=== PATIENT | male | born 1935 | race Caucasian/White ===

== ENCOUNTER → 2016-09-25 | Outpatient (CLI) | payer OTHER, BC ==
[~2016-09-25] MED LIST: ALL100 PO; ALLO100T PO; CALC500C70 PO; IBUP-103 PO; LOSA50TA6 PO; MULT-506 PO; MULT60CA PO; PRLSR20 PO
[2016-09-25 10:54] LABS: BASO % 0.5 %; BASO ABS # 0.02 K/uL (0-0.2); COMPLETE YES; EOS % 5.3 %; HEMATOCRIT 38.8 % (42-52); LYMPH % 41.6 %; LYMPH ABS # 1.79 K/uL (1.2-3.4); MEAN CELL VOLUME 93.3 fL (80-100); MEAN CORPUSCULAR HEMOGLOBIN 32.5 pg (25-34); MEAN CORPUSCULAR HGB CONC 34.8 g/dl (32-36); MEAN PLATELET VOLUME 9.5 fL (7.4-10.4); MONO % 7.7 %; NEUT % 44.9 %; PLATELET COUNT 187 K/uL (130-400); RED BLOOD COUNT 4.16 M/uL (4.7-6.1)
[2016-09-25 11:06] LABS: BLOOD UREA NITROGEN 16 mg/dl (7-18); BUN/CREATININE RATIO 13.1 (10-20); CALCIUM 9.2 mg/dl (8.5-10.1); CARBON DIOXIDE 28 mmol/L (21-32); CHLORIDE 107 mmol/L (98-107); GLUCOSE 105 mg/dl (70-99); POTASSIUM 4.2 mmol/L (3.5-5.1); SODIUM 143 mmol/L (136-145)
[2016-09-25 11:22] LABS: ESTIMATED AVERAGE GLUCOSE 105 mg/dl; HA1C FLAG Normal (Normal)
== END | disposition home or self-care (01) ==
LOC: C.LABBC 08:42
PROVIDERS: ATTEND Internal Medicine Geriatric Medicine
DX: I10 Essential (primary) hypertension (principal); D64.9 Anemia, unspecified; R73.9 Hyperglycemia, unspecified; M25.559 Pain in unspecified hip; M85.80 Other specified disorders of bone density and structure, unspecified site

== ENCOUNTER → 2017-04-06 | Outpatient (CLI) | payer OTHER, BC ==
[2017-04-06 10:55] LABS: BASO % 0.2 %; BASO ABS # 0.01 K/uL (0-0.2); COMPLETE YES; EOS % 5.4 %; HEMATOCRIT 40.3 % (42-52); IG% 0.2 %; LYMPH % 32.3 %; LYMPH ABS # 1.63 K/uL (1.2-3.4); MEAN CELL VOLUME 94.8 fL (80-100); MEAN CORPUSCULAR HEMOGLOBIN 31.8 pg (25-34); MEAN CORPUSCULAR HGB CONC 33.5 g/dl (32-36); MEAN PLATELET VOLUME 9.5 fL (7.4-10.4); MONO % 5.4 %; NEUT % 56.5 %; PLATELET COUNT 223 K/uL (130-400); RED BLOOD COUNT 4.25 M/uL (4.7-6.1); WHITE BLOOD COUNT 5.04 K/uL (4.8-10.8)
[2017-04-06 11:27] LABS: BLOOD UREA NITROGEN 23 mg/dl (7-18); BUN/CREATININE RATIO 20.8 (10-20); CALCIUM 8.8 mg/dl (8.5-10.1); CARBON DIOXIDE 29 mmol/L (21-32); CHLORIDE 107 mmol/L (98-107); GLUCOSE 93 mg/dl (70-99); POTASSIUM 4.5 mmol/L (3.5-5.1); SODIUM 142 mmol/L (136-145); URIC ACID 5.2 mg/dl (2.6-7.2)
== END | disposition home or self-care (01) ==
LOC: C.LABBC 09:11
PROVIDERS: ATTEND Internal Medicine Geriatric Medicine
DX: M10.9 Gout, unspecified (principal); I10 Essential (primary) hypertension; K21.9 Gastro-esophageal reflux disease without esophagitis; M19.90 Unspecified osteoarthritis, unspecified site; K31.84 Gastroparesis; D64.9 Anemia, unspecified

== ENCOUNTER → 2017-05-21 | Day surgery (SDC) | payer OTHER, BC ==
[2017-05-04 14:08] VITALS: Ht 162.6 cm; Wt 77.3 kg
[~2017-05-21] VITALS: Ht 162.6 cm; Wt 77.3 kg
[~2017-05-21] MED LIST changes: -ALL100 PO; +LIDOCAINE HCL 2% 2 ML VIAL (20MG/ML) ONE; +PROPOFOL IV EMULSION 10 MG/ML 20 ML VIAL IV ONE; +SODIUM CHLORIDE 0.9% 500ML 500 ML IV ONE
--- NOTE | 2017-05-21 09:54 | Endo History and Physical ---
History & Physical Date of Service: May 21, 2017. Chief Complaint: Hx of Adenoma Referring Physician: DR Erick Blank History of Present Illness 81 yo CM who presents for colonoscopy secondary to history of colon polyps. Past Medical History Male Genitourinary Prob., Gastrointestinal Disorder, Reflux, Hypertension Past Surgical History Hx Cardiac Surgery: No Hx Internal Defibrillator: No Hx Pacemaker: No Hx Abdominal Surgery: Yes (BRIA, HERNIA REPAIR) Hx of Implantable Prosthesis: No Hx Post-Op Nausea and Vomiting: No Hx Cancer Surgery: No Hx Thoracic Surgery: No Hx Orthopedic: No Hx Urinary Tract Surgery: No Family History None Social History Smoking Status: Former Smoker Hx Substance Use: No Hx Alcohol Use: Yes (A FEW TIMES/WEEK, OCCASIONAL BEER OR MIXED DRINK) Allergies Coded Allergies: No Known Allergies (Verified , 05/21/17) Current Medications Reported Home Medications Medications Dose Route/Sig Max Daily Dose Days Date Category Advil (Ibuprofen) 200 Mg Tab 200 Mg PO PRN 05/04/17 Reported Zyloprim (Allopurinol) 100 Mg Tab 100 Mg PO QAM 05/04/17 Reported Preservision Areds 2 (Multiple Vitamins W/ Minerals) 1 Cap Cap 1 Cap PO BID 05/30/16 Reported Cozaar (Losartan Potassium) 50 Mg Tab 50 Mg PO QAM 05/30/16 Reported Os-Uziel 500 Plus D (Calcium/Vitamin D) Tab 1 Tab PO BID 05/30/16 Reported Prilosec (Omeprazole) 20 Mg Capcr 20 Mg PO BID 05/19/13 Reported Multivitamin (Multivitamins) Tab 1 Tab PO QAM 12/10/07 Reported Vital Signs Weight (Kilograms): 77.27 Height (Feet): 5 Height (Inches): 4 Date Time Temp Pulse Resp B/P (MAP) Pulse Ox O2 Delivery O2 Flow Rate FiO2 05/21/17 09:28 36.5 71 20 124/69 (87) 97 Room Air Physical Exam General Appearance: WD/WN, no apparent distress Respiratory/Chest: Auscultation: breath sounds normal Cardiovascular: Heart Auscultation: RRR Abdomen: Bowel Sounds: normal Inspection & Palpation: soft, non-distended, no tenderness, guarding & rebound Assessment and Plan Assessment: 81 yo CM who presents for colonoscopy secondary to history of colon polyps. Plan: Proceed with colonoscopy.
--- NOTE | 2017-05-21 10:42 | GI REPORT ---
Procedure Date: 05/21/2017 9:47 AM Procedure: Colonoscopy Indications: High risk colon cancer surveillance: Personal history of colonic polyps Medicines: Monitored Anesthesia Care Complications: No immediate complications. Estimated Blood Loss: Estimated blood loss: none. Procedure: Pre-Anesthesia Assessment: - Prior to the procedure, a History and Physical was performed, and patient medications and allergies were reviewed. The patient's tolerance of previous anesthesia was also reviewed. The risks and benefits of the procedure and the sedation options and risks were discussed with the patient. All questions were answered, and informed consent was obtained. Prior Anticoagulants: The patient has taken no previous anticoagulant or antiplatelet agents. ASA Grade Assessment: II - A patient with mild systemic disease. After reviewing the risks and benefits, the patient was deemed in satisfactory condition to undergo the procedure. After I obtained informed consent, the scope was passed under direct vision. Throughout the procedure, the patient's blood pressure, pulse, and oxygen saturations were monitored continuously. The Scope was introduced through the anus and advanced to the cecum, identified by appendiceal orifice and ileocecal valve. The colonoscopy was performed without difficulty. The patient tolerated the procedure well. The quality of the bowel preparation was good. The terminal ileum, the ileocecal valve and the rectum were photographed. Findings: Five sessile polyps were found in the transverse colon. The polyps were 3 to 6 mm in size. These polyps were removed with a cold snare. Resection and retrieval were complete. Multiple small-mouthed diverticula were found in the sigmoid colon. Non-bleeding internal hemorrhoids were found during retroflexion. The hemorrhoids were small. Impression: - Five 3 to 6 mm polyps in the transverse colon, removed with a cold snare. Resected and retrieved. - Diverticulosis in the sigmoid colon. - Non-bleeding internal hemorrhoids. Recommendation: - Resume previous diet. - Continue present medications. - Repeat colonoscopy for surveillance based on pathology results. - Return to primary care physician as previously scheduled. Pilo Rhodes, DO 05/21/2017 10:42:32 AM This report has been signed electronically. Note Initiated On: 05/21/2017 9:47 AM I attest to the content of the Intraoperative Record and orders documented therein, exceptions below
--- NOTE | 2017-05-21 10:48 | Discharge Instructions ---
Endoscopy Patient Instructions Date / Procedure(s) Performed May 21, 2017. Colonoscopy Allergy Information Coded Allergies: No Known Allergies (Verified , 05/21/17) Discharge Date / Findings May 21, 2017. Colon polyps Internal hemorrhoids Medication Instructions OK to resume all medications today as prescribed Reported Home Medications Medications Dose Route/Sig Max Daily Dose Days Date Category Advil (Ibuprofen) 200 Mg Tab 200 Mg PO PRN 05/04/17 Reported Zyloprim (Allopurinol) 100 Mg Tab 100 Mg PO QAM 05/04/17 Reported Preservision Areds 2 (Multiple Vitamins W/ Minerals) 1 Cap Cap 1 Cap PO BID 05/30/16 Reported Cozaar (Losartan Potassium) 50 Mg Tab 50 Mg PO QAM 05/30/16 Reported Os-Uziel 500 Plus D (Calcium/Vitamin D) Tab 1 Tab PO BID 05/30/16 Reported Prilosec (Omeprazole) 20 Mg Capcr 20 Mg PO BID 05/19/13 Reported Multivitamin (Multivitamins) Tab 1 Tab PO QAM 12/10/07 Reported Provider Instructions Activity Restrictions - No exercising or heavy lifting for 24 hours. - Do not drink alcohol the day of the procedure. - Do not drive a car or operate machinery until the day after the procedure. - Do not make any important decisions or sign important papers in 24 hours after the procedure. Following Day: - Return to full activity which may include returning to work/school. Diet Start your diet with liquids and light foods (jello, soup, juice, toast). Then eat your usual diet if not nauseated. Treatment For Common After Affects For mild abdominal pain, bloating, or excessive gas: - Rest - Eat lightly - Lie on right side Follow-Up Information Follow-up with DR Erick Blank as scheduled Anesthesia Information What You Should Know You have had a procedure that required some medicine to reduce anxiety and discomfort. This treatment is called moderate sedation. After receiving the treatment, you may be sleepy, but you will be able to breathe on your own. The effects of the treatment may last for several hours. Follow these instructions along with Activity/Diet recommendations noted above: * Do NOT do anything where dizziness or clumsiness would be dangerous. * Rest quietly at home today, then you can be up and about tomorrow. * Have a responsible person stay with you the rest of today. * You may have had an I.V. today. If so, you may take the dressing off later today. Recommendations Call your doctor if: * Trouble breathing * Continuous vomiting for more than 24 hours * Temperature above 101 degrees * Severe abdominal pain or bloating * Pain not relieved by pain medicine ordered * There is increased drainage or redness from any incision * A large amount of rectal bleeding greater than 2-3 tablespoons. (If you had a polyp/s removed or have hemorrhoids, a small amount of blood - from the rectum is to be expected.) * You have any unanswered questions or concerns. IN THE EVENT OF A SERIOUS EMERGENCY, GO TO THE NEAREST EMERGENCY ROOM Your discharge instructions were prepared by provider Pilo Rhodes. Patient Instructions Signature Page Epifanio Savage Patient (or Guardian) Signature/Date: I have read and understand the instructions given to me by my caregivers. Caregiver/RN/Doctor Signature/Date: The above-named patient and/or guardian has received patient instructions on this date. + Original Patient Signature Page (only) stays with chart. Please make copy for patient.
--- NOTE | 2017-05-21 10:58 | Anesthesiology Progress Note ---
Anesthesia Post Op Note Date & Time May 21, 2017 at 10:57 Vital Signs Pain Intensity: 0 Vital Signs Past 12 Hours Date Time Temp Pulse Resp B/P (MAP) Pulse Ox O2 Delivery O2 Flow Rate FiO2 05/21/17 10:40 61 18 136/83 (100) 97 Room Air 05/21/17 10:25 52 18 124/69 (87) 97 Room Air 05/21/17 09:28 36.5 71 20 124/69 (87) 97 Room Air Notes Mental Status: alert / awake / arousable, participated in evaluation Pt Amnestic to Procedure: Yes Nausea / Vomiting: adequately controlled Pain: adequately controlled Airway Patency, RR, SpO2: stable & adequate BP & HR: stable & adequate Hydration State: stable & adequate Anesthetic Complications: no major complications apparent
[2017-05-21 11:15] VITALS: BP 165/88; PULSE 64; O2SAT 97
== END | disposition home or self-care (01) ==
LOC: C.GI 08:55
PROVIDERS: ATTEND Internal Medicine
DX: Z12.11 Encounter for screening for malignant neoplasm of colon (principal); D12.3 Benign neoplasm of transverse colon; K57.30 Diverticulosis of large intestine without perforation or abscess without bleeding; K64.8 Other hemorrhoids; K21.9 Gastro-esophageal reflux disease without esophagitis; Z86.010 Personal history of colon polyps; Z90.49 Acquired absence of other specified parts of digestive tract; I10 Essential (primary) hypertension; Z72.0 Tobacco use; Z68.29 Body mass index [BMI] 29.0-29.9, adult; Z98.890 Other specified postprocedural states

== ENCOUNTER → 2017-10-01 | Outpatient (CLI) | payer OTHER, BC ==
[~2017-10-01] MED LIST changes: -LIDOCAINE HCL 2% 2 ML VIAL (20MG/ML) ONE; -PROPOFOL IV EMULSION 10 MG/ML 20 ML VIAL IV ONE; -SODIUM CHLORIDE 0.9% 500ML 500 ML IV ONE
[2017-10-01 13:41] LABS: BASO % 0.2 %; BASO ABS # 0.01 K/uL (0-0.2); EOS % 10.5 %; EOS ABS # 0.55 K/uL (0-0.5); HEMATOCRIT 38.3 % (42-52); HEMOGLOBIN 13.3 g/dL (14.0-18.0); IG# 0.02 K/uL (0.00-0.02); LYMPH % 31.7 %; LYMPH ABS # 1.66 K/uL (1.2-3.4); MEAN CELL VOLUME 94.1 fL (80-100); MEAN CORPUSCULAR HEMOGLOBIN 32.7 pg (25-34); MEAN CORPUSCULAR HGB CONC 34.7 g/dl (32-36); MEAN PLATELET VOLUME 9.3 fL (7.4-10.4); MONO % 6.7 %; MONO ABS # 0.35 K/uL (0.11-0.59); NEUT % 50.5 %; NEUT ABS # 2.64 K/uL (1.4-6.5); PLATELET COUNT 209 K/uL (130-400); RED CELL DISTRIBUTION WIDTH CV 13.3 % (11.5-14.5); RED CELL DISTRIBUTION WIDTH SD 45.9 fL (36.4-46.3); WHITE BLOOD COUNT 5.23 K/uL (4.8-10.8)
[2017-10-01 14:06] LABS: HEMOGLOBIN A1C 5.3 % (4.5-5.6)
[2017-10-01 14:19] LABS: ALBUMIN 3.3 gm/dl (3.4-5.0); ALT/SGPT 20 U/L (12-78); BLOOD UREA NITROGEN 24 mg/dl (7-18); CALCIUM 8.6 mg/dl (8.5-10.1); CARBON DIOXIDE 27 mmol/L (21-32); CHOLESTEROL 144 mg/dl (0-200); CREATININE 1.07 mg/dl (0.60-1.40); GLUCOSE 102 mg/dl (70-99); POTASSIUM 3.8 mmol/L (3.5-5.1); SODIUM 145 mmol/L (136-145)
[2017-10-01 14:29] LABS: ALKALINE PHOSPHATASE 81 U/L (45-117); AST/SGOT 22 U/L (15-37); LDL CHOLESTEROL CALCULATED 79 mg/dl; TOTAL PROTEIN 6.6 gm/dl (6.4-8.2)
== END | disposition home or self-care (01) ==
LOC: C.LABBC 11:05
PROVIDERS: ATTEND Internal Medicine Geriatric Medicine
DX: I10 Essential (primary) hypertension (principal); D64.9 Anemia, unspecified; M19.90 Unspecified osteoarthritis, unspecified site; R73.9 Hyperglycemia, unspecified

== ENCOUNTER → 2017-10-25 | Outpatient (CLI) | payer OTHER, BC | END | disposition home or self-care (01) | LOC: C.MAMM 12:26 | PROVIDERS: ATTEND Internal Medicine Geriatric Medicine | DX: M85.851 Other specified disorders of bone density and structure, right thigh (principal); M85.852 Other specified disorders of bone density and structure, left thigh ==

== ENCOUNTER → 2017-11-01 | Outpatient (CLI) | payer OTHER, BC | END | disposition home or self-care (01) | LOC: C.LABBC 08:49 | PROVIDERS: ATTEND Internal Medicine Geriatric Medicine | DX: R39.15 Urgency of urination (principal) ==

== ENCOUNTER → 2018-04-08 | Outpatient (CLI) | payer OTHER, BC ==
[2018-04-08 10:27] LABS: BASO % 0.2 %; BASO ABS # 0.01 K/uL (0-0.2); EOS % 9.5 %; EOS ABS # 0.51 K/uL (0-0.5); HEMATOCRIT 38.2 % (42-52); HEMOGLOBIN 13.2 g/dL (14.0-18.0); IG# 0.01 K/uL (0.00-0.02); LYMPH % 39.8 %; LYMPH ABS # 2.13 K/uL (1.2-3.4); MEAN CELL VOLUME 93.9 fL (80-100); MEAN CORPUSCULAR HEMOGLOBIN 32.4 pg (25-34); MEAN CORPUSCULAR HGB CONC 34.6 g/dl (32-36); MEAN PLATELET VOLUME 9.7 fL (7.4-10.4); MONO % 6.9 %; MONO ABS # 0.37 K/uL (0.11-0.59); NEUT % 43.4 %; NEUT ABS # 2.32 K/uL (1.4-6.5); PLATELET COUNT 196 K/uL (130-400); RED CELL DISTRIBUTION WIDTH CV 13.3 % (11.5-14.5); RED CELL DISTRIBUTION WIDTH SD 45.7 fL (36.4-46.3); WHITE BLOOD COUNT 5.35 K/uL (4.8-10.8)
[2018-04-08 10:38] LABS: BLOOD UREA NITROGEN 25 mg/dl (7-18); CALCIUM 8.3 mg/dl (8.5-10.1); CARBON DIOXIDE 26 mmol/L (21-32); GLUCOSE 110 mg/dl (70-99); SODIUM 142 mmol/L (136-145)
== END | disposition home or self-care (01) ==
LOC: C.LABBC 08:51
PROVIDERS: ATTEND Internal Medicine Geriatric Medicine
DX: I10 Essential (primary) hypertension (principal); D64.9 Anemia, unspecified; R73.9 Hyperglycemia, unspecified

== ENCOUNTER 2024-01-24 10:59 | Inpatient (IN) ==
[2024-01-24] MEDS ORDERED: Heparin IV Adult Wt-Based Standard w/ INITIAL Bolus Protocol IV STA (11:43)
[2024-01-24 11:45] LABS: Basophils # (auto) 0.02 K/uL (0.00-0.20); Basophils % (auto) 0.3 %; Eosinophils # (auto) 0.53 K/uL (0.00-0.50); Eosinophils % (auto) 7.4 %; Hematocrit (blood only) 33.9 % (42.0-52.0); Hemoglobin 11.6 g/dl (14.0-18.0); Immature Granulocytes # (auto) 0.03 K/uL (0.01-0.20); Immature Granulocytes % (auto) 0.4 %; Lymphocytes # (auto) 1.47 K/uL (1.20-3.40); Lymphocytes % (auto) 20.5 %; Mean Corpuscular Hemoglobin 31.4 pg (25.0-34.0); Mean Corpuscular Hgb Conc 34.2 g/dL (32.0-36.0); Mean Corpuscular Volume 91.6 fL (80.0-100.0); Mean Platelet Volume 9.1 fL (9.4-12.4); Monocytes % (auto) 8.4 %; Neutrophils # (auto) 4.51 K/uL (1.40-6.50); Platelet Count 274 K/uL (130-400); RDW Coefficient of Variation 13.1 % (11.5-14.5); White Blood Count 7.16 K/ul (4.8-10.8)
--- NOTE | 2024-01-24 11:53 | XRay Report ---
XR chest 1V not portable CLINICAL HISTORY: Chest pain, nonspecific COMPARISON STUDY: Chest radiograph January 21, 2024. Chest CT performed earlier today. FINDINGS: There is no pneumothorax or pleural effusion. Linear left basilar opacity represents atelec tasis. A 3.3 cm right upper lobe opacity is similar to chest CT performed earlier today. Cardiac size is normal. Mediastinal contours are normal. There is no evidence for pulmonary edema. IMPRESSION: 3.3 cm right upper lobe opacity which corresponds to a pulmonary infarct when correlatin g with chest CT performed earlier today. ACT 112: Negative or not required by law. Electronically signed by: Ignacio Herring M.D. 01/24/2024 11:52 AM
[2024-01-24] MEDS ORDERED: HEPARIN SOD (PORCINE) 1000 UNIT/ML IV ONE (11:59)
[2024-01-24 12:01] LABS: Albumin Level 3.6 gm/dl (3.4-5.0); BUN Creatinine Ratio 20.6 (10-20); Bilirubin,Total 0.4 mg/dl (0.2-1.0); Calcium 9.3 mg/dl (8.6-10.3); Creatinine Clr Calc Pharmacy 45.4 ml/min; Est GFR (Non-African American) 61.2 ml/min; Globulin 3.7 gm/dl (2.5-4.0); Potassium 4.3 mmol/L (3.5-5.1); Total Protein 7.3 gm/dl (6.0-8.3)
--- NOTE | 2024-01-24 12:05 | Emergency Department Note ---
Impression & Plan Dyspnea on exertion, Pulmonary embolism and infarction ED Provider Note HISTORY OF PRESENT ILLNESS: Patient is a 88-year-old male presenting with abnormal CT scan. Patient reports for the last 6 days or so he has been having significant lethargy and progressively worsening shortness of breath with exertion. reports that he is normally very active and over the last 6 days he has progressively been very slowly getting around and getting very winded with only a few steps. He does not wear any supplemental oxygen at baseline. He is not on any anticoagulant or antiplatelet therapy. Denies any DVT or PE history. He had follow-up workup in his primary care provider's office and had a CT PE scan done today which showed a right upper lobe PE with pulmonary infarct. He was referred to the emergency department for further evaluation. He denies any history of intracranial bleeds or GI bleeds. He does report that in the last 48 hours he has developed some right-sided chest pain, most notably painful when he tries to take a deep breath. ROS: as above PHYSICAL EXAM: Constitutional: Patient appears in no acute distress. HENT: Head: Normocephalic and atraumatic. Eyes: EOMI, PERRL Mouth/Throat: Mucous membranes moist. Neck: Trachea midline. Neck supple. Cardiovascular: RRR, No murmurs, rubs or gallops. Intact distal pulses. Pulmonary/Chest: No respiratory distress. Breath sounds clear and equal bilaterally. No wheezes or rales. Abdominal: Abdomen soft, no tenderness, rebound or guarding. Musculoskeletal: No edema, tenderness or deformity noted. Skin: Warm and dry. No rash, erythema, pallor or cyanosis Psychiatric: Appropriate mood and affect for situation. Neurological: Alert and keenly responsive. CN II-XII grossly intact, moving all extremities equally and fully. MDM: - Vitals signs showed borderline tachycardia - History obtained via patient. History as above. - Chronic conditions affecting care: HTN; CKD; BPH; GERD - Differential diagnoses include, but are not limited to: CHF exacerbation; PE; pneumonia; ACS - Order placed for continuous cardiac monitoring. At this time, monitor showed rate of 90 bpm with normal sinus rhythm, per my interpretation. - External medical records reviewed. Chest CTA performed today was reviewed. Patient noted to have a segmental pulmonary embolism within the right upper lobe with associated small right upper lobe infarction. - EKG interpreted by myself showed normal sinus rhythm. Rate 88 bpm. QT 356. No acute ischemic changes. - Laboratory workup interpreted by myself showed normal WBC; stable electrolytes; slight transaminitis (AST 87; ALT 87); normal total bilirubin; normal troponin; normal lactate - CXR negative for pneumonia, per my interpretation. Radiology does note 3.3 cm right upper lobe opacity concerning for the pulmonary infarct that was seen on the CT earlier today. - Heparin bolus and drip ordered for PE with pulmonary infarction. - Discussion was had with complex case manager about patient's case and need for admission - Hospitalist consulted for admission - [facility]. I have personally spent 34 minutes of critical care time in the direct management of this patient. This includes bedside care, interpretation of diagnostic studies, and testing, discussion with consultants, patient, and family members, and other required patient management activities. This 34 minutes is in excess of all separately billable procedures. 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 Managed with Vit D + Ca. 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) Giraldo esophagus Chronic kidney disease Erectile dysfunction Gastroparesis Generalized osteoarthritis GERD (gastroesophageal reflux disease) (~2009) Gout Hearing deficit Hypertension Incontinence Tubular adenoma (~2016) Surgical History History of bilateral cataract extraction History of circumcision History of colonoscopy History of esophagogastroduodenoscopy (EGD) History of left knee surgery History of tonsillectomy and adenoidectomy History of wisdom tooth extraction S/P cholecystectomy S/P hernia repair Family History Father Cancer Hypertension Son Cancer Sister Ovarian cancer Mother Hypertension Other No family history of adverse response to anesthesia No family history of allergies No family history of bleeding disorder Stroke Denies family history of Prostate cancer Diabetes Hearing loss Heart disease Myocardial infarction Breast cancer Lung cancer Colorectal cancer Asthma Social History (System 12/19/23 @ 07:50 by Kristen Bran) Smoking Status: Former smoker Tobacco Type: Pipe Age Started Using Tobacco: 17; Age Quit Using Tobacco: 62; Second Hand Exposure: No; Do You Dip or Chew Tobacco: No; Hx Alcohol Use: Yes Alcohol type: beer, wine and hard liquor Alcohol Intake Frequency: 4 or More x per/Week Alcohol Intake Frequency Comment: 8 beers and 2 glasses of wine per week Hx Substance Use: No Preferred Language: Wolof Communication Ability: Effective Visual Impairment: Limited Hearing Ability: Normal Laster Hand Required: No Beliefs That Will Affect Care: Oriental Orthodox Oriental Orthodox Beliefs: Rastafarian marital status: Current Living Situation: Spouse and Family Current Living Situation Comment: Lives with and son lives in apartment down stairs current occupational status: retired How many Children do You have: 2 Feels Safe at Home: Yes Childhood Exposure to Second-Hand Smoke: No caffeine: Yes Dental Care, Regularly: Yes Physical Activity Frequency: 1-2 Times per Week Seatbelt Use: always Sunscreen Use: No Assistive Devices: Glasses Allergies Allergies Allergy/AdvReac Type Severity Reaction Status Date / Time No Known Drug Allergies Allergy Unknown Verified 01/22/24 16:41 Home Meds Home Medications Medication Instructions Recorded Confirmed multivitamin with iron-mineral 1 tab PO BID 04/30/19 01/22/24 Vitamin C 1 tab PO UD 01/21/24 01/22/24 calcium 1 tab PO UD 01/21/24 01/22/24 losartan 50 mg tablet (Cozaar) 50 mg PO DAILY 01/21/24 01/22/24 Previous Rx's Medication Instructions Recorded vitamins A,C,N-pvam-rebjll 2,148 1 tab PO BID #120 tabs 04/23/19 mcg-113 mg-45 mg-17.4 mg tablet (PreserVision AREDS) dutasteride 0.5 mg capsule 0.5 mg PO DAILY #90 caps 06/20/23 tamsulosin 0.4 mg capsule 0.4 mg PO QPM #90 caps 07/03/23 omeprazole 20 mg capsule,delayed 20 mg PO DAILY #90 caps 07/04/23 release allopurinol 100 mg tablet 100 mg PO QAM #90 tabs 10/22/23 Results & Data (ED) Vital Signs Vital Signs - 24 hr 01/24/24 11:03 01/24/24 12:16 01/24/24 12:20 Temperature 36.2 C L Temperature Source Temporal Artery Scan Pulse Rate 91 H 84 Pulse Rate [Apical] 85 Pulse Rhythm Regular Pulse Rhythm [Apical] Regular Pulse Strength Normal Pulse Strength [Apical] Normal Respiratory Rate 20 18 Respiratory Effort / Characteristics Non-Labored Spontaneous Non-Labored Spontaneous Respiratory Depth Normal Normal Blood Pressure 133/79 Blood Pressure [Right Arm] 125/72 Blood Pressure Mean 97 Blood Pressure Mean [Right Arm] 89 Blood Pressure Position Sitting Blood Pressure Position [Right Arm] Semi-fowlers Pulse Oximetry 94 95 Oxygen Delivery Method Room Air Room Air Sepsis Recent Fever Within 48 Hours No Sepsis New/Unexplained Change in Mental Status N/A Sepsis Action Taken by Nursing No Action Required 01/24/24 12:20 Temperature Temperature Source Pulse Rate 86 Pulse Rate [Apical] Pulse Rhythm Pulse Rhythm [Apical] Pulse Strength Pulse Strength [Apical] Respiratory Rate 18 Respiratory Effort / Characteristics Respiratory Depth Blood Pressure Blood Pressure [Right Arm] Blood Pressure Mean Blood Pressure Mean [Right Arm] Blood Pressure Position Blood Pressure Position [Right Arm] Pulse Oximetry 96 Oxygen Delivery Method Room Air Sepsis Recent Fever Within 48 Hours Sepsis New/Unexplained Change in Mental Status Sepsis Action Taken by Nursing Laboratory Data 01/24/24 11:15 01/24/24 11:15 Lab Results 01/24/24 01/24/24 Range/Units 11:15 12:14 WBC 7.16 (4.8-10.8) K/ul RBC 3.70 L (4.70-6.10) M/uL Hgb 11.6 L (14.0-18.0) g/dl Hct 33.9 L (42.0-52.0) % MCV 91.6 (80.0-100.0) fL MCH 31.4 (25.0-34.0) pg MCHC 34.2 (32.0-36.0) g/dL RDW Std Deviation 43.0 (36.4-46.3) fL RDW Coeff of Radha 13.1 (11.5-14.5) % Plt Count 274 (130-400) K/uL MPV 9.1 L (9.4-12.4) fL Immature Gran % (Auto) 0.4 % Neut % (Auto) 63.0 % Lymph % (Auto) 20.5 % Dubois % (Auto) 8.4 % Eos % (Auto) 7.4 % Baso % (Auto) 0.3 % Neut # (Auto) 4.51 (1.40-6.50) K/uL Lymph # (Auto) 1.47 (1.20-3.40) K/uL Dubois # (Auto) 0.60 H (0.11-0.59) K/uL Eos # (Auto) 0.53 H (0.00-0.50) K/uL Baso # (Auto) 0.02 (0.00-0.20) K/uL Immature Gran # (Auto) 0.03 (0.01-0.20) K/uL PT 10.8 (9.0-12.0) Seconds INR 1.0 (0.9-1.1) APTT 29 (21-31) Seconds PTT Ratio 1.1 Sodium 134 L (136-145) mmol/L Potassium 4.3 (3.5-5.1) mmol/L Chloride 101 (98-107) mmol/L Carbon Dioxide 25 (21-32) mmol/L Anion Gap 8 (3-11) BUN 22 (6-23) mg/dl Creatinine 1.07 (0.6-1.4) mg/dl Est Cr Clr Drug Dosing 45.4 ml/min Est GFR ( Amer) 71.0 ml/min Est GFR (Non-Af Amer) 61.2 ml/min BUN/Creatinine Ratio 20.6 H (10-20) Glucose 123 H (70-99(Fasting)) mg/dl Lactate 1.2 (0.4-2.0) mmol/L Calcium 9.3 (8.6-10.3) mg/dl Total Bilirubin 0.4 (0.2-1.0) mg/dl AST 87 H (13-39) U/L ALT 87 H (7-52) U/L Alkaline Phosphatase 90 (34-104) U/L Troponin I High Sens 6.5 (0-20) pg/ml Total Protein 7.3 (6.0-8.3) gm/dl Albumin 3.6 (3.4-5.0) gm/dl Globulin 3.7 (2.5-4.0) gm/dl Albumin/Globulin Ratio 1.0 (0.9-2) Imaging Data Radiologist's Impression: Chest X-Ray 01/24/24 11:06 XR chest 1V not portable CLINICAL HISTORY: Chest pain, nonspecific COMPARISON STUDY: Chest radiograph January 21, 2024. Chest CT performed earlier today. FINDINGS: There is no pneumothorax or pleural effusion. Linear left basilar opacity represents atelectasis. A 3.3 cm right upper lobe opacity is similar to chest CT performed earlier today. Cardiac size is normal. Mediastinal contours are normal. There is no evidence for pulmonary edema. IMPRESSION: 3.3 cm right upper lobe opacity which corresponds to a pulmonary infarct when correlating with chest CT performed earlier today. ACT 112: Negative or not required by law. Electronically signed by: Ignacio Herring M.D. 01/24/2024 11:52 AM Discharge Plan Visit Data Chief Complaint: Referred by Doctor Stated Complaint: PULMONARY EMBOLISM ED Provider: Ronda Jarvis Discharge Problem: Dyspnea on exertion, Pulmonary embolism and infarction Forms Stand Alone Forms: My [facility] Versium Prescriptions Prescriptions: No Action PreserVision AREDS [id number] tablet 1 tab PO BID Qty: 120 2RF Rx Instructions: administer with AM and PM meals dutasteride 0.5 mg capsule 0.5 mg PO DAILY Qty: 90 3RF tamsulosin 0.4 mg capsule 0.4 mg PO QPM Qty: 90 3RF omeprazole 20 mg capsule,delayed release(DR/EC) 20 mg PO DAILY Qty: 90 3RF allopurinol 100 mg tablet 100 mg PO QAM Qty: 90 3RF multivitamin with iron-mineral tablet 1 tab PO BID Vitamin C 1 tab PO UD Rx Instructions: otc, as directed. unknown dose calcium 1 tab PO UD Rx Instructions: otc, as directed. unknown dose losartan [Cozaar] 50 mg tablet 50 mg PO DAILY Referrals Referrals: Darryn Newell DO [Primary Care Provider] -
[2024-01-24 12:08] LABS: Troponin I High Sensitivity 6.5 pg/ml (0-20)
[2024-01-24 12:09] LABS: Partial Thromboplastin Ratio 1.1; Partial Thromboplastin Time 29 Seconds (21-31); Prothrombin Time 10.8 Seconds (9.0-12.0)
[2024-01-24] MEDS: HEPARIN SOD (PORCINE) 1000 UNIT/ML IV ONE (12:36)
[2024-01-24] MEDS: HEPARIN SODIUM/DEXTROSE 25,000 UNITS/500 ML BAG IV SCH (12:36)
--- NOTE | 2024-01-24 12:42 | History & Physical Report ---
Date of Service January 24, 2024 Assessment & Plan (1) Pulmonary embolism and infarction: Plan: Admit to med/telemetry on pulse oximetry Currently hemodynamically stable, stable on room air, [id number] Presented to the ED this a.m. after outpatient CTA of the chest with PE protocol noted a right upper lobe embolism with infarct Patient has remained stable in the ER, high-sensitivity troponin is within normal limits, patient did have an outpatient echocardiogram also obtained today, will wait for results No recent travel, trauma, or major surgeries No previous history of blood clots Will obtain venous Dopplers of the bilateral lower extremities on admission Continue heparin drip for now, can switch to p.o. anticoagulant prior to discharge Heart healthy diet AM CBC, CMP, mag, PT/INR (2) Elevated LFTs: Plan: AST and ALT are 87 today Other LFTs are within normal limits Patient is without scleral icterus or jaundice, denies abdominal pain with a benign abdominal exam today Could be related to possible viral illness in the recent past, will obtain acetaminophen and medical alcohol levels on admission Avoid nephrotoxic agents If still increasing tomorrow or not improving would recommend obtaining right upper quadrant ultrasound for further assessment Will obtain acute hepatitis panel on admission (3) Generalized weakness: Plan: Patient has been experiencing progressive fatigue/generalized weakness over the past 2 weeks Infectious workup obtained outpatient by his PCP on 01/23/2024 has been unremarkable Could be related to newly diagnosed PE with pulmonary infarction, hemoglobin has been stable patient denies recent bleeding Will obtain mag, Phos, folic acid, B12 levels on admission for further assessment Fall/aspiration precautions PT/OT consult placed (4) Dyspnea on exertion: Plan: Likely related to his newly diagnosed right upper lobe pulmonary embolus with infarction High-sensitivity troponin was within normal limits, no acute ST segment or T wave changes noted on ECG No signs of pneumonia/infection on chest x-ray or CTA of the chest today Possible respiratory bio fire obtained on 01/23/2024 was negative Will follow outpatient echocardiogram when report is ready Continue to monitor on telemetry (5) Hypertension: Plan: Stable, continue losartan as long as blood pressure remains stable with new PE (6) Gout: Plan: Continue allopurinol Plan Patient was discussed with Dr. Covarrubias at the time of the admission History of Present Illness Chief Complaint: Pleuritic chest pain, dyspnea on exertion, fatigue Primary Care Provider: DO Epifanio Polk is an 88-year-old male with a past medical history significant for hypertension, CKD, BPH, gout, and GERD who presented to the [facility] ED on 01/24/2024 after outpatient CTA of the chest noted a right upper lobe pulmonary embolus with infarction. He remained stable while in the emergency department. Labs were significant for a sodium of 134, AST of 87, ALT of 87, high-sensitivity troponin within normal limits. Chest x-ray obtained in the emergency department was read as a 3.3 cm right upper lobe opacity which corresponds to a pulmonary infarct when correlating with CT chest performed earlier today. And CTA of the chest with PE protocol was read as segmental pulmonary embolus within the right upper lobe with an associated small right upper lobe pulmonary infarct. It also noted an 11 mm circumscribed enhancing left lower lobe nodule, slightly increased in size since CT of December 21, 2014. This appears to be contiguous with the pulmonary vein. This favors a vascular otology such as pulmonary vein varix or AVM. A carcinoid could appear similar. Prior to admission patient was ordered a weight-based heparin drip with bolus. Patient was sitting in bed at this time exam in no acute distress with his at bedside, history was obtained from both. The patient has had progressive fatigue/generalized weakness, dyspnea on exertion, and pleuritic chest pain over the past 2 weeks. Was seen by his PCP yesterday and this is when outpatient CTA of the chest and echocardiogram were ordered. They were then told to go to the emergency department after he was noted to have a PE. No recent fevers/chills, has had nonproductive dry cough, denies hemoptysis, no abdominal pain/nausea/vomiting, no dysuria/hematuria, denies recent diarrhea, melena, recent long travel, lower extremity swelling, or recent trauma or surgeries. He is a full code and his is his POA. Please refer to Dr. Covarrubias's attestation for any changes to the treatment plan. Allergies Allergy/AdvReac Type Severity Reaction Status Date / Time No Known Drug Allergies Allergy Unknown Verified 01/29/24 14:40 Home Medications Medication Instructions Recorded Confirmed Type vitamins A,C,D-rqir-unlbfj 2,148 1 tab PO BID #120 tabs 04/23/19 01/29/24 Rx mcg-113 mg-45 mg-17.4 mg tablet (PreserVision AREDS) tamsulosin 0.4 mg capsule 0.4 mg PO QPM #90 caps 07/03/23 01/29/24 Rx omeprazole 20 mg capsule,delayed 20 mg PO DAILY #90 caps 07/04/23 01/29/24 Rx release allopurinol 100 mg tablet 100 mg PO QAM #90 tabs 10/22/23 01/29/24 Rx ascorbic acid (vitamin C) 500 mg 500 mg PO DAILY 01/21/24 01/29/24 History tablet (Vitamin C) calcium carbonate 500 mg PO DAILY 01/21/24 01/29/24 History losartan 50 mg tablet (Cozaar) 50 mg PO DAILY 01/21/24 01/29/24 History cqnjscfi-lr-lvsay 300 mcg-K 60 1 tab PO DAILY 01/24/24 01/29/24 History mcg-lycop 600 mcg-lutein 300 mcg tablet (Centrum Silver Men) rivaroxaban 15 mg tablet (Xarelto) 15 mg PO BID #40 tabs 01/26/24 01/29/24 Rx Past Med/Surg History Problem List Right leg DVT Elevated LFTs Generalized weakness Pulmonary embolism and infarction (Acute) Dyspnea on exertion (Acute) Acute dehydration (Acute) Acute hypotension (Acute) Rotator cuff arthropathy of left shoulder Hypertension Chronic kidney disease Pre-diabetes Anemia Benign prostatic hyperplasia with post-void dribbling Nocturia associated with benign prostatic hyperplasia Peripheral neuropathy Gout GERD (gastroesophageal reflux disease) (~2009) 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 Managed with Vit D + Ca. 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) Incontinence Giraldo esophagus Hearing deficit Tubular adenoma (~2016) Gastroparesis Surgical History History of left knee surgery History of circumcision History of colonoscopy History of esophagogastroduodenoscopy (EGD) History of wisdom tooth extraction History of tonsillectomy and adenoidectomy History of bilateral cataract extraction S/P hernia repair S/P cholecystectomy Family History Father Cancer Hypertension Son Cancer Sister Ovarian cancer Mother Hypertension Other No family history of adverse response to anesthesia No family history of allergies No family history of bleeding disorder Stroke Denies family history of Prostate cancer Diabetes Hearing loss Heart disease Myocardial infarction Breast cancer Lung cancer Colorectal cancer Asthma Social History Smoking Status: Former smoker Tobacco Type: Pipe Age Started Using Tobacco: 17; Age Quit Using Tobacco: 62; Second Hand Exposure: No; Do You Dip or Chew Tobacco: No; Hx Alcohol Use: Yes Alcohol type: beer, wine and hard liquor Alcohol Intake Frequency: 4 or More x per/Week Alcohol Intake Frequency Comment: 8 beers and 2 glasses of wine per week Hx Substance Use: No Preferred Language: Greenlandic Communication Ability: Effective Visual Impairment: Limited Hearing Ability: Normal Venture Capital Analyst Required: No Beliefs That Will Affect Care: Protestant Protestant Beliefs: Anabaptist marital status: Current Living Situation: Spouse and Family Current Living Situation Comment: lives in lower floor apartment with and son current occupational status: retired How many Children do You have: 2 Feels Safe at Home: Yes Childhood Exposure to Second-Hand Smoke: No caffeine: Yes Dental Care, Regularly: Yes Physical Activity Frequency: 1-2 Times per Week Seatbelt Use: always Sunscreen Use: No Assistive Devices: Glasses Physical Exam Physical Exam: Physical Exam: General: In no acute distress, stated age, non-toxic appearing HEENT: Normocephalic, atraumatic, no scleral icterus, pupils around round, symmetrical, and reactive to light, moist mucus membranes, trachea midline, no thyromegaly Chest/Pulm: No respiratory distress, symmetrical chest expansion, clear breath sounds throughout Cardiac: RRR, no murmurs noted Abdomen: Negative for ascites and bruising, normoactive bowel sounds, soft, non-tender to palpation throughout Musculoskeletal: Symmetrical and without signs of acute trauma, upper and lower extremities with full ROM, no atrophy, spasticity, or flaccidity Extremities: Radial, dorsalis pedis, and posterior tibial pulses are intact and symmetrical, no edema noted in the BL LE's Skin: Warm, dry, no rashes , lesions, or scars noted Neuro: Alert and oriented to person, place, month, year, and president, no focal defects, no tremors noted Psych: No acute distress, calm and cooperative during the exam Results & Data Results & Data Vital Signs (Past 12 Hours) Vital Signs Temp Pulse Pulse Resp BP BP Pulse Ox 01/24/24 12:20 86 18 96 01/24/24 12:20 85 18 125/72 95 01/24/24 12:16 84 01/24/24 11:03 36.2 C L 91 H 20 133/79 94 O2 Del Method 01/24/24 12:20 Room Air 01/24/24 12:20 Room Air 01/24/24 12:16 01/24/24 11:03 Room Air Laboratory Results Abnormal lab results 01/24/24 Range/Units 11:15 RBC 3.70 L (4.70-6.10) M/uL Hgb 11.6 L (14.0-18.0) g/dl Hct 33.9 L (42.0-52.0) % MPV 9.1 L (9.4-12.4) fL [place] # (Auto) 0.60 H (0.11-0.59) K/uL Eos # (Auto) 0.53 H (0.00-0.50) K/uL Sodium 134 L (136-145) mmol/L BUN/Creatinine Ratio 20.6 H (10-20) Glucose 123 H (70-99(Fasting)) mg/dl AST 87 H (13-39) U/L ALT 87 H (7-52) U/L Diagnostic Findings Chest X-Ray 01/24/24 11:06 XR chest 1V not portable CLINICAL HISTORY: Chest pain, nonspecific COMPARISON STUDY: Chest radiograph January 21, 2024. Chest CT performed earlier today. FINDINGS: There is no pneumothorax or pleural effusion. Linear left basilar opacity represents atelectasis. A 3.3 cm right upper lobe opacity is similar to chest CT performed earlier today. Cardiac size is normal. Mediastinal contours are normal. There is no evidence for pulmonary edema. IMPRESSION: 3.3 cm right upper lobe opacity which corresponds to a pulmonary infarct when correlating with chest CT performed earlier today. ACT 112: Negative or not required by law. Electronically signed by: Ignacio Herring M.D. 01/24/2024 11:52 AM ECG Additional Comments: Sinus rhythm with Fusion complexes Left axis deviation Inferior infarct (cited on or before 20-DEC-2019) Cannot rule out Anterior infarct (cited on or before 21-JAN-2024) Abnormal ECG When compared with ECG of 21-JAN-2024 10:25, Fusion complexes are now Present Code Status & VTE Plan Code Status Full code VTE Prophylaxis Plan VTE Prophylaxis will be ordered: Yes Supervising Physician Co-Signing Physician Notes I personally saw and examined the patient. I verified all sheppard points and agree with Franco Gupta PA-C with the following exceptions and/or additions: 88 year old male presents to the ER due to outpatient CT showing pulmonary embolism. O/E HS RRR, no murmurs, Chest CTAB, Abdo SNT, no pedal edema b/l A/P Pulmonary embolism - IV heparin, US venous dopplers PG Care Time/CCT Total # of Minutes Spent Total Time Spent with Patient: Total time spent is greater than 50% in coordination of care (as documented) at patient's floor/unit and/or counseling patient: Coding [place] [address] INT INP/OBS CARE 2/55MIN Patient Type Established Medical Decision Making Moderate Complexity Diagnoses Pulmonary embolism and infarction I26.99 Elevated LFTs R79.89 Generalized weakness R53.1 Dyspnea on exertion R06.09 Hypertension I10 Gout M10.9
[2024-01-24 13:58] LABS: Magnesium 2.2 mg/dl (1.7-2.4); Phosphorus 3.7 mg/dl (2.5-4.9)
[2024-01-24 14:18] LABS: Folate (Folic Acid),Ser orPlas > 22.30 ng/ml (>5.38)
[2024-01-24 14:19] LABS: Vitamin B12 579 pg/ml (180-914)
[2024-01-24] MEDS: Heparin IV Adult Wt-Based Standard w/ INITIAL Bolus Protocol IV SCH (15:33)
--- NOTE | 2024-01-24 16:20 | Ultrasound Report ---
BILATERAL LOWER EXTREMITY VENOUS DOPPLER HISTORY: Acute shortness of breath with pulmonary emboli new PE, please monitor for DVT COMPARISON STUDY: CTA chest of same day FINDINGS: There is normal compressibility, flow, and augmentation within the left lower extremity elias p venous structures. Extensive occlusive deep venous thrombosis of the right lower extremity extends from the common femoral vein into the ankle including the posterior tibial and peroneal veins with th rombus also present within the gastrocnemius vein. IMPRESSION: 1. Extensive likely acute right lower extremity DVT. 2. No left-sided DVT. ACT 112: Negative or not required by law. Electronically signed by: Davey Nava M.D. 01/24/2024 4:19 PM
--- NOTE | 2024-01-24 17:48 | Electrocardiogram Report ---
Test Reason : Blood Pressure : / mmHG Vent. Rate : 088 BPM Atrial Rate : 088 BPM P-R Int : 196 ms QRS Dur : 072 ms QT Int : 356 ms P-R-T Axes : 066 -32 012 degrees QTc Int : 430 ms Sinus rhythm with Fusion complexes Left axis deviation Inferior infarct (cited on or before 01-AUG-2019) Abnormal ECG When compared with ECG of 21-JAN-2024 10:25, Fusion complexes are now Present Confirmed by Nathan Roman ([id number]) on 01/24/2024 5:48:04 PM Referred By: Confirmed By:Hiram Roman
[2024-01-24 19:30] LABS: ANTI-Xa, LMWH(Low Molecular Wt 0.64 IU/ML (< 0.10)
[2024-01-24] MEDS: TAMSULOSIN HCL 0.4 MG CAP PO SCH (20:31)
[2024-01-24 20:32] LABS: Appearance Urine Clear (Clear); Bilirubin Urine Negative (Negative); Blood Urine Negative (Negative); Color Urine Yellow; Glucose Urine UA Negative (Negative); Ketones Urine Negative (Negative); Leukocyte Esterase Urine Negative (Negative); Nitrite Urine Negative (Negative); Protein Urine Negative (Negative); Specific Gravity Urine 1.024 (1.000-1.030); Urobilinogen Urine Negative (Negative); pH Urine 5.5 (4.5-7.5)
[2024-01-25 06:17] LABS: Basophils # (auto) 0.02 K/uL (0.00-0.20); Basophils % (auto) 0.4 %; Eosinophils # (auto) 0.59 K/uL (0.00-0.50); Eosinophils % (auto) 10.6 %; Hematocrit (blood only) 31.3 % (42.0-52.0); Hemoglobin 10.9 g/dl (14.0-18.0); Immature Granulocytes # (auto) 0.02 K/uL (0.01-0.20); Immature Granulocytes % (auto) 0.4 %; Lymphocytes # (auto) 1.42 K/uL (1.20-3.40); Lymphocytes % (auto) 25.4 %; Mean Corpuscular Hemoglobin 31.5 pg (25.0-34.0); Mean Corpuscular Hgb Conc 34.8 g/dL (32.0-36.0); Mean Corpuscular Volume 90.5 fL (80.0-100.0); Mean Platelet Volume 8.8 fL (9.4-12.4); Monocytes # (auto) 0.55 K/uL (0.11-0.59); Monocytes % (auto) 9.8 %; Neutrophils # (auto) 2.99 K/uL (1.40-6.50); Neutrophils % (auto) 53.4 %; Platelet Count 280 K/uL (130-400); RDW Coefficient of Variation 12.8 % (11.5-14.5); RDW Standard Deviation 42.4 fL (36.4-46.3); Red Blood Count 3.46 M/uL (4.70-6.10); White Blood Count 5.59 K/ul (4.8-10.8)
[2024-01-25 06:39] LABS: Albumin Level 3.1 gm/dl (3.4-5.0); BUN Creatinine Ratio 17.6 (10-20); Bilirubin,Total 0.4 mg/dl (0.2-1.0); Calcium 8.8 mg/dl (8.6-10.3); Creatinine Clr Calc Pharmacy 44.7 ml/min; Est GFR (African American) 70.2 ml/min; Est GFR (Non-African American) 60.5 ml/min; Globulin 3.1 gm/dl (2.5-4.0); Potassium 3.8 mmol/L (3.5-5.1); Total Protein 6.2 gm/dl (6.0-8.3)
[2024-01-25 07:07] LABS: ANTI-Xa, UFH(UnfractionatedHep 0.63 IU/ml (0.3-0.7)
[2024-01-25] MEDS: allopurinoL 100 MG TAB PO SCH (07:55)
[2024-01-25] MEDS: LOSARTAN POTASSIUM 50 MG TAB PO SCH (07:55)
[2024-01-25] MEDS: PANTOprazole 40 MG TAB PO SCH (07:55)
[2024-01-25] MEDS: OPTIRAY 320 125ml IV ONE (08:29)
--- NOTE | 2024-01-25 09:46 | CT Scan Report ---
CT VENOGRAM OF THE ABDOMEN AND PELVIS WITH IV CONTRAST CLINICAL HISTORY: Right femoral deep venous thrombosis. Assess for pelvic DVT. COMPARISON STUDY: Chest CT dated 12/21/2014. TECHNIQUE: Following the IV administration of 120 cc of Optiray 320, CT venogram of the abdomen and pelvis is performed from the lung bases to the proximal femora. Images are reviewed in the axial, sag ittal, and coronal planes. IV contrast was administered without complication. A dose lowering techniq ue was utilized adhering to the principles of ALARA. CT DOSE: 1024.03 mGy.cm FINDINGS: Lung bases: The heart is normal in size and without pericardial effusion. There are coronary artery c alcifications. A 12 mm ovoid well-circumscribed left lower lobe nodule is again seen on image #36. Th ere is bibasilar scarring/atelectasis. No airspace consolidation or pleural effusion is identified. Liver: The contrast-enhanced liver is normal in size, contour, and attenuation. There is mild central intrahepatic biliary ductal dilatation. The hepatic veins and portal veins are patent. Gallbladder: Gallbladder is surgically absent noting clips in the gallbladder fossa. There are lou us (greater than 10) dropped gallstones in the right upper quadrant and right mid abdomen. Spleen: Normal in size and attenuation. Pancreas: Unremarkable. Adrenal glands: Unremarkable. Kidneys: The contrast enhanced kidneys demonstrate mild cortical atrophy and are without hydronephros is. The kidneys enhanced and excrete symmetrically. A 13 mm cyst is noted on the left. Abdominal aorta: The abdominal aorta is normal in course and caliber noting moderate to advanced athe rosclerotic calcification. The abdominal aorta and iliac arteries are patent. Inferior vena cava and pelvic veins. The inferior vena cava and iliac veins are patent bilaterally. T here is no evidence of pelvic deep venous thrombosis. Deep venous thrombosis is seen within the right common femoral and superficial femoral veins. Bowel: There is moderate sigmoid diverticulosis without CT evidence of acute diverticulitis. No bowel obstruction is seen. The appendix is well-visualized and normal. Peritoneum: There is no intraperitoneal free air or abdominal ascites. Lymphadenopathy: None. Pelvic viscera: The prostate gland is enlarged and heterogeneous. The bladder wall is thickened/trabe culated indicating chronic outlet obstruction. There is evidence of previous right inguinal herniorrh aphy. Skeletal structures: The skeletal structures are osteopenic. There is mild to moderate lumbosacral sp ondylosis. No lytic or blastic lesions are seen. IMPRESSION: 1. There is no evidence of deep venous thrombosis in the IVC or iliac vessels as clinically queried. 2. Right lower extremity DVT as partially visualized. 3. Status post cholecystectomy with numerous dropped gallstones in the right abdomen. 4. A 12 mm ovoid left lower lobe pulmonary nodule has been present dating back to at least 2014. 5. Sigmoid diverticulosis without CT evidence of acute diverticulitis. 6. Additional findings as above. ACT 112: Negative or not required by law. Electronically signed by: Tim Bowman M.D. 01/25/2024 9:44 AM
--- NOTE | 2024-01-25 13:17 | Hospitalist Progress Note ---
Date of Service January 25, 2024 Assessment & Plan (1) Pulmonary embolism and infarction: Plan: Right upper lobe. Fortunately he is on room air. Likely source is right lower extremity DVT. He is currently on a heparin drip. (2) Right leg DVT: Plan: Seen on venous Doppler study. Currently asymptomatic. No swelling or tenderness. (3) Elevated LFTs: Plan: Mild. Suspect recent viral illness. Serial labs (4) Generalized weakness: Plan: Suspect viral etiology. Supportive care. OT and PT assessments (5) Dyspnea on exertion: Plan: Due to PE with associated pulmonary infarction. Supportive care. No hypoxia currently (6) Hypertension: Plan: Stable. Continue current medical management Plan Hopeful discharge to home tomorrow, January 25, on Xarelto Admission and Anticipated Discharge Date Admission Date: January 24, 2024 Subjective Alert and oriented. is at the bedside. He had symptoms of a viral illness preceding this hospitalization. Venous Doppler evaluation reveals right lower extremity DVT. This is likely source of the PE in the right upper lobe associated with pulmonary infarction. He denies any shortness of breath or chest pain. He is currently on a heparin drip. He will be switched to Xarelto tomorrow, January 25 Review of Systems 2 Review of Systems: Constitutional-recent development of weakness and malaise. ENT-no blurred vision, no double vision, no epistaxis, no sore throat Respiratory-no cough, no wheezing, no shortness of breath Cardiac-no palpitations, no chest pain, no syncope GI-no nausea, vomiting, diarrhea, melena, hematochezia -no urinary retention, no urinary incontinence, no dysuria, no hematuria Musculoskeletal-no joint pain, no muscle tenderness. Denies calf swelling Skin-no bruising, no rashes, no pruritus Neuro-generalized weakness Psych-no depression, no anxiety Physical Exam 2 Physical Exam: General-alert and oriented x3, no fever, no chills HEENT-head atraumatic and normocephalic, pupils equal and reactive to light, extraocular muscles intact Neck-no lymphadenopathy or thyromegaly, trachea midline Chest-clear to auscultation. No rales, wheezing or rhonchi Cardiac-regular rate and rhythm, normal S1 and S2 Abdomen-normal bowel sounds, no hepatosplenomegaly Extremities-no cyanosis, clubbing, or edema. No calf swelling or tenderness Neuro-cranial nerves II through XII intact, motor and sensory function within normal limits, strength symmetrical, no focal deficits Psych-flat affect Results & Data Results & Data Vital Signs (Past 12 Hours) Vital Signs Temp Pulse Pulse Pulse Resp BP BP 01/25/24 11:43 36.4 C L 97 H 18 131/83 01/25/24 07:58 36.7 C 78 18 152/81 H 01/25/24 07:33 82 01/25/24 03:05 36.7 C 94 H 18 132/79 Pulse Ox O2 Del Method 01/25/24 11:43 95 Room Air 01/25/24 07:58 93 Room Air 01/25/24 07:33 01/25/24 03:05 94 Room Air Laboratory Results 01/25/24 05:51 01/25/24 05:51 PG Care Time/CCT Total # of Minutes Spent Total Time Spent with Patient: Total time spent is greater than 50% in coordination of care (as documented) at patient's floor/unit and/or counseling patient: Coding Level of Care Code 14428 SUB INP/OBS CARE 3/50MIN Diagnoses Pulmonary embolism and infarction I26.99 Right leg DVT I82.401 Elevated LFTs R79.89 Generalized weakness R53.1 Dyspnea on exertion R06.09 Hypertension I10
[2024-01-26 06:45] LABS: Basophils # (auto) 0.03 K/uL (0.00-0.20); Basophils % (auto) 0.5 %; Eosinophils # (auto) 0.61 K/uL (0.00-0.50); Eosinophils % (auto) 10.7 %; Hematocrit (blood only) 31.8 % (42.0-52.0); Hemoglobin 11.1 g/dl (14.0-18.0); Immature Granulocytes # (auto) 0.02 K/uL (0.01-0.20); Immature Granulocytes % (auto) 0.4 %; Lymphocytes % (auto) 29.9 %; Mean Corpuscular Hemoglobin 31.2 pg (25.0-34.0); Mean Corpuscular Hgb Conc 34.9 g/dL (32.0-36.0); Mean Corpuscular Volume 89.3 fL (80.0-100.0); Mean Platelet Volume 8.9 fL (9.4-12.4); Monocytes # (auto) 0.52 K/uL (0.11-0.59); Monocytes % (auto) 9.1 %; Neutrophils # (auto) 2.81 K/uL (1.40-6.50); Neutrophils % (auto) 49.4 %; Platelet Count 326 K/uL (130-400); RDW Coefficient of Variation 12.7 % (11.5-14.5); RDW Standard Deviation 42.1 fL (36.4-46.3); Red Blood Count 3.56 M/uL (4.70-6.10); White Blood Count 5.69 K/ul (4.8-10.8)
[2024-01-26 07:13] LABS: Albumin Level 3.1 gm/dl (3.4-5.0); BUN Creatinine Ratio 18.3 (10-20); Bilirubin,Total 0.3 mg/dl (0.2-1.0); Calcium 8.9 mg/dl (8.6-10.3); Est GFR (African American) 69.4 ml/min; Est GFR (Non-African American) 59.9 ml/min; Globulin 3.2 gm/dl (2.5-4.0); Potassium 3.7 mmol/L (3.5-5.1); Total Protein 6.3 gm/dl (6.0-8.3)
[2024-01-26 07:38] LABS: ANTI-Xa, UFH(UnfractionatedHep 0.72 IU/ml (0.3-0.7)
[2024-01-26 08:13] LABS: Magnesium 2.1 mg/dl (1.7-2.4)
[2024-01-26] MEDS: RIVAROXABAN 15 MG TAB PO SCH (09:56)
[2024-01-26 11:42] LABS: HBSAG NON-REACTIVE (NON-REACTIVE); Hepatitis A Antibody IgM NON-REACTIVE (NON-REACTIVE); Hepatitis B Core Antibody IgM NON-REACTIVE (NON-REACTIVE)
--- NOTE | 2024-01-26 12:07 | Discharge Summary ---
Date of Service January 26, 2024 Admission HPI Per Admitting Provider Epifanio is an 88-year-old male with a past medical history significant for hypertension, CKD, BPH, gout, and GERD who presented to the [facility] ED on 01/24/2024 after outpatient CTA of the chest noted a right upper lobe pulmonary embolus with infarction. He remained stable while in the emergency department. Labs were significant for a sodium of 134, AST of 87, ALT of 87, high-sensitivity troponin within normal limits. Chest x-ray obtained in the emergency department was read as a 3.3 cm right upper lobe opacity which corresponds to a pulmonary infarct when correlating with CT chest performed earlier today. And CTA of the chest with PE protocol was read as segmental pulmonary embolus within the right upper lobe with an associated small right upper lobe pulmonary infarct. It also noted an 11 mm circumscribed enhancing left lower lobe nodule, slightly increased in size since CT of December 21, 2014. This appears to be contiguous with the pulmonary vein. This favors a vascular otology such as pulmonary vein varix or AVM. A carcinoid could appear similar. Prior to admission patient was ordered a weight-based heparin drip with bolus. Patient was sitting in bed at this time exam in no acute distress with his at bedside, history was obtained from both. The patient has had progressive fatigue/generalized weakness, dyspnea on exertion, and pleuritic chest pain over the past 2 weeks. Was seen by his PCP yesterday and this is when outpatient CTA of the chest and echocardiogram were ordered. They were then told to go to the emergency department after he was noted to have a PE. No recent fevers/chills, has had nonproductive dry cough, denies hemoptysis, no abdominal pain/nausea/vomiting, no dysuria/hematuria, denies recent diarrhea, melena, recent long travel, lower extremity swelling, or recent trauma or surgeries. He is a full code and his is his POA. Please refer to Dr. Covarrubias's attestation for any changes to the treatment plan. Principal Diagnosis Right upper lobe pulmonary embolism, right upper lobe pulmonary infarction, right lower extremity DVT, suspect viral illness with weakness and elevated liver function tests Discharge Exam General-alert and oriented x3, no fever, no chills HEENT-head atraumatic and normocephalic, pupils equal and reactive to light, extraocular muscles intact Neck-no lymphadenopathy or thyromegaly, trachea midline Chest-clear to auscultation. No rales, wheezing or rhonchi Cardiac-regular rate and rhythm, normal S1 and S2 Abdomen-normal bowel sounds, no hepatosplenomegaly Extremities-no cyanosis, clubbing, or edema. No calf swelling or tenderness Neuro-cranial nerves II through XII intact, motor and sensory function within normal limits, strength symmetrical, no focal deficits Psych-flat affect Discharge Data Allergies Allergy/AdvReac Type Severity Reaction Status Date / Time No Known Drug Allergies Allergy Unknown Verified 01/24/24 17:01 Consultations 01/24/24 12:39 ED Decision to Admit Stat Ordered Studies 01/24/24 13:27 US venous doppler LE BI Urgent 01/25/24 07:00 CT abdomen pelvis veno w con Routine Hospital Course (1) Pulmonary embolism and infarction: Right upper lobe. Fortunately he is on room air. Likely source is right lower extremity DVT. Heparin drip has been switched to Xarelto 15 mg twice a day which she will take for 3 weeks then switch to 20 mg daily going forward. (2) Right leg DVT: Seen on venous Doppler study. Currently asymptomatic. No swelling or tenderness. (3) Elevated LFTs: Mild. Suspect recent viral illness. Serial labs (4) Generalized weakness: Suspect viral etiology. Supportive care. Continue OT and PT while hospitalized (5) Dyspnea on exertion: Due to PE with associated pulmonary infarction. Supportive care. No hypoxia currently. Should resolve over time (6) Hypertension: Stable. Continue current medical management Plan Home today, January 25 on Xarelto Total Time Total Time Spent Total Time Spent (In Minutes): 45 minutes Discharge Plan Discharge Items Patient Disposition: Home - Self-Care Reason For Visit: PE, GENERALIZED WEAKNESS Discharge Diagnosis: Right upper lobe pulmonary embolism, right upper lobe pulmonary infarction, right lower extremity DVT, suspected viral illness with elevated liver function testing and weakness Activity: Resume your previous activity Non-emergency contact: Primary Care Provider Call non-emergency contact if: you have any medication questions and your symptoms worsen Follow-up/Referrals: Darryn Newell DO [Primary Care Provider] - 02/01/24 2:45 pm Diet: Regular and Heart Healthy Addtl Attending Provider Instructions: Take Xarelto 15 mg twice daily for 3 weeks then 20 mg once a day going forward. Pending Studies at Discharge: No Stand-Alone Forms: My [facility], Smoking Cessation Medications and DC Order Prescriptions: New Xarelto 15 mg Tablet 15 mg PO BID Qty: 40 0RF Continued PreserVision AREDS [id number] tablet 1 tab PO BID Qty: 120 2RF Rx Instructions: administer with AM and PM meals tamsulosin 0.4 mg capsule 0.4 mg PO QPM Qty: 90 3RF omeprazole 20 mg capsule,delayed release(DR/EC) 20 mg PO DAILY Qty: 90 3RF allopurinol 100 mg tablet 100 mg PO QAM Qty: 90 3RF calcium carbonate [Calcium 500] 500 mg calcium (1,250 mg) Tablet 500 mg PO DAILY Rx Instructions: otc, as directed. unknown dose ascorbic acid (vitamin C) [Vitamin C] 500 mg Tablet 500 mg PO DAILY Rx Instructions: otc, as directed. unknown dose losartan [Cozaar] 50 mg tablet 50 mg PO DAILY Centrum Silver Men [phone] mcg Tablet 1 tab PO DAILY Discharge Orders: Discharge Order (Routine); Ordered 01/26/24 Ordered By: Alex Graves Admission Data Admit Date/Time: 01/24/24 12:45 Attending Provider: Alex Graves Admit Provider: Rashad Covarrubias Primary Care Provider: Darryn Newell Other Providers: Rashad Covarrubias Coding Level of Care Code 83315 INP/OBS DISCH >30 MIN Diagnoses Pulmonary embolism and infarction I26.99 Right leg DVT I82.401 Elevated LFTs R79.89 Generalized weakness R53.1 Dyspnea on exertion R06.09 Hypertension I10
--- NOTE | 2024-02-12 10:40 | Coding Query ---
CODING QUERY To promote full compliance with coding requirements relating to patient care, provider participation is requested in all cases of rescue worker uncertainty. Please assist us with the question(s) below: Coding Question(s): Please specify below, in your clinical opinion, the diagnosis most responsible for occasioning the Inpatient admission: ( ) Right Lower Extremity DVT (x ) Right upper lobe Pulmonary Embolism ( ) Right Lower Extremity DVT and Right upper lobe Pulmonary Embolism, Equally ( ) Other: Please Specify Physician's Response(s): Thank you Swati Almaguer Principal Diagnosis: "that condition established after study, to be chiefly responsible for occasioning the admission of the patient to the hospital for care." Co-Existing Principal Diagnosis: "when two or more diagnoses equally meet the criteria for principal diagnosis as determined by the circumstances of admission, diagnostic work up, and/or therapy provided, and the Alphabetic Index, Tabular List, or another coding guideline does not provide sequencing direction, any one of the diagnoses may be sequenced first." "When the physician has documented what appears to be a current diagnosis in the body of the record, but has not included the diagnosis in the final diagnostic statement, the physician should be asked whether the diagnosis should be added." (Source [facility]oding [facility] 2 QTR90. p3-4) [facility]
== END 2024-01-26 13:32 | disposition home or self-care (01) | DRG 176 ==
LOC: ED 10:59 → 2N 12:45 → SUATTDRO 12:45 → 2N 18:08